=== PATIENT | female | born 1985 | race Caucasian/White ===

== ENCOUNTER 2024-10-29 13:59 | Emergency (ER) | payer OTHER, SELFPAY ==
--- OUTSIDE RECORDS SUMMARY | 2024-10-29 14:02 | XMS_ITS | Encounter Summary ---
Author Organization [facility] Address [address] [facility] [address] Care Team Providers Care Senior It Specialist Name Role Phone Tenisha Michelle APRN, DEPUTY [place] Primary Ca re Provider Encounter Details Date Type Department Care Team (Late st Contact Info) Description 06/04/2024 Notes/Orders [facility] [address] [place] [address] Jose Elias Garcia MD [address] [place] [id number] Social History Tobacco Use Types Packs/Day Years Used Date Smoking Tobacco: Never Passive Smoke Exposure: Never Alcohol Use Standard Drinks/Week Comments No 0 (1 standard drink = 0.6 oz pur e alcohol) PHQ-2 Answer Date Recorded PHQ-2 Score 0 05/14/2024 Depression Answer Date Recor ded Last EPDS Total Score 0 03/25/2024 Last EPDS Self Harm Result 0-->never 03/25 Sex and Gender Information Value Date Recorded Sex Assigned at Not on file Gender Identity Not on file Sexual Orientation Not on file documented as of this encounter Plan of Treatment Not on file documented as of this encounter Visit Diagnoses Not on filedocumented in this encounter Care Teams Senior It Specialist Relationship Specialty Start Date End Date Tenisha Michelle APRN, DEPUTY [place] [address] [id number] PCP - General Nurse Practitioner 07/30/16 documented as of this encounter
--- OUTSIDE RECORDS SUMMARY | 2024-10-29 14:02 | XMS_ITS | Encounter Summary ---
Author Organization [facility] Address [address] [place] [address] Care Team Providers Care Decatizer Name Role Phone Tenisha Michelle APRN, LIFEGUARD Primary Ca re Provider Encounter Details Date Type Department Care Team (Late st Contact Info) Description 04/10/2021 Lab Requisition [facility] [address] [facility] [place], [place] [address] Clinician, Not Found, [place] [address] Encounter for screening for respiratory tuberculosis Social History Tobacco Use Types Packs/Day Years Used Date Smoking Tobacco: Never Alcohol Use Standard Drinks/Week Comments No 0 (1 standard drink = 0.6 oz pur e alcohol) Depression Answer Date Recor ded Last EPDS Total Score 0 07/16/2020 Last EPDS Self Harm Result 0-->never 07/16 Sex and Gender Information Value Date Recorded Sex Assigned at Not on file Gender Identity Not on file Sexual Orientation Not on file documented as of this encounter Plan of Treatment Not on file documented as of this encounter Visit Diagnoses Diagnosis Encounter for screening for respiratory tuberculosis Screening examination for pulmonary tuberculosis documented in this encounter Care Teams Decatizer Relationship Specialty Start Date End Date Tenisha Michelle, TIFFANY, LIFEGUARD [address] [place] [address] PCP - General Nurse Practitioner 07/30/16 documented as of this encounter
--- OUTSIDE RECORDS SUMMARY | 2024-10-29 14:02 | XMS_ITS | Clinical Summary ---
Author Organization [facility] Address [place], [place] [address] Care Team Providers Care Customs Appraiser Name Role Phone Pcp, No Primary Care Provider Unavailabl e Allergies Active Allergy Reactions Criticality Noted Date Comments Clindamycin Other - Describe In Comment Field 07/30/2016 Latex Other - Describe In Comment Field 04/23/2016 PN: rash Penicillins Rash Medium 12/29/2015 Sulfa (Sulfonamide Antibiotics) Rash Medium 12/29/2015 Medications diphenhydrAMINE (BENADRYL) 50 mg capsule Take 1 capsule by mouth every 6 hours if needed. 0 10/22/2019 Active Immunizations Name Administration Dates Next Due Influenza, IIV4 07/22/2019 Tdap 05/18/2016 Family History Medical History Relation Name Comments No Known Problems Brother Sleep apnea Father Sleep apnea Paternal Uncle Relation Name Status Comments Brother Alive Father Alive Maternal Grandfather Maternal Grandmother Mother Alive Paternal Grandfather Paternal Grandmother Paternal Uncle Alive Social History Tobacco Use Types Packs/Day Years Used Date Smoking Tobacco: Former Cigarettes Smokeless Tobacco: Never Tobacco Cessation:Counseling Given: Yes Alcohol Use Standard Drinks/Week Comments Yes 0 (1 standard drink = 0.6 oz pur e alcohol) PHQ-2 Answer Date Recorded PHQ-2 Score 0 10/22/2019 Social Connections Answer Date Recorded Frequency of Communication with Friends and Fami ly Not on file 09/30/2021 Financial Resource Strain Answer Date R ecorded Difficulty of Paying Living Expenses Not on file 09/30/2021 Difficulty of Paying Living Expenses Not on file 09/30/2021 Comments No Sex and Gender Information Value Date Recorded Sex Assigned at Not on file Legal Sex Female 7:24 PM CDT Gender Identity Not on file Sexual Orientation Not on file Obstetrics History Last Filed Vital Signs Vital Sign Reading Time Taken Comments Blood Pressure 124/76 10/22/2019 10:03 AM SCRAP KETTLE TENDER Pulse 94 10/22/2019 10:03 AM SCRAP KETTLE TENDER Temperature - - Respiratory Rate - - Oxygen Saturation - - Inhaled Oxygen Concentration - - Weight 105.7 kg (233 lb) 10/22/2019 10:03 AM SCRAP KETTLE TENDER Height 163.8 cm (5' 4.47) 10/22/2019 10:[address] Body Mass Index 39.41 10/22/2019 10:03 AM SCRAP KETTLE TENDER Plan of Treatment Health Maintenance Due Date Last Done Comments HIV for age 15-65 1999 Hepatitis C screening for ag e 18-79 2002 Pap test for age 21-65 2005 BMI (ht and wt on same day) for age 18+ 10/22/2020 10/22/2019 Depression screening for age 12+ 10/22/2020 10/22/19 20 COVID-19 vaccine series (2023- season) 2024 Influenza for age 9-49 05/31/2024 07/22/2019 Tetanus booster 05/18/2026 05/18/2016 Tdap Completed 05/18/2016 Pneumococcal series for age 6-49 Aged Out No longer eligible based on patient's age to complete this topic Insurance [facility] Care Teams Customs Appraiser Relationship Specialty Start Date End Date Pcp, No . PCP - General 10/19/19
--- OUTSIDE RECORDS SUMMARY | 2024-10-29 14:02 | XMS_ITS | Clinical Summary ---
Author Organization [facility] Address [address] [place] [address] Care Team Providers Care Telegraphic Instrument Supervisor Name Role Phone Tenisha Michelle APRN, CAFETERIA HELPER Primary Ca re Provider Source Comments You are receiving this document as you are listed as the primary care provider,follow-up provider, or the patient has been referred to you for consultation.This is in compliance with the Medicare and[facility] Hospital[facility] EHR Incentive Program,which states Providers who transition their patient to another setting of careor provider of care or refers their patient to another provider of care shouldprovide summary care record for each transition of care or referral. Spectropath Allergies Active Allergy Reactions Criticality Noted Date Comments Clindamycin 07/30/2016 Latex 04/23/2016 PN: rash Penicillins Rash Medium 12/29/2015 Sulfa Antibiotics Rash Medium 12/29/2015 Medications No known medications Active Problems Problem Noted Date Diagnosed Date Sleep apnea 05/14/2024 Overview (05/14/2024): No CPAP Left foot pain 04/27/2024 Resolved Problems Problem Noted Date Diagnosed Date Resolved Date (spontaneous vaginal delivery) 08/01/2016 10/11/2016 Streptococcus B carrier stat e complicating 07/31/2016 10/11/2016 Prolonged second stage (of labor) 07/31/2016 10/11/2016 Pre-eclampsia in third trimester 07/23/2016 10/11/2016 Gestational diabetes mellitus, antepartum 06/05/2016 10/11/2016 Obesity in 01/27/2016 017 Cervical high risk HPV (jase n papillomavirus) test positive 01/27/2016 10/11/2016 Overview (05/04/2016): + HPV 16, normal pap. Plan repeat pp. Encounter for supervision of normal first 01/27/2016 10/11/2016 Overview (05/04/2016): Normal 20 week ultrasound. Immunizations Name Administration Dates Next Due Influenza IIV4 (Quadrivalent) 0.5mL (68662) 07/01 TDAP (BOOSTRIX) 05/18/2016 Family History Medical History Relation Name Comments Stroke Father Dandre Diabetes, Type II Paternal Grandfather Anesthesia Reaction Negative Family History DVT/PE Negative Family History Thromboembolic Disease Negative Family History Relation Name Status Comments Father Dandre Alive Mother Alive Brother Alive Maternal Grandfather Maternal Grandmother Alive Paternal Grandfather Paternal Grandmother Social History Tobacco Use Types Packs/Day Years [...] on file Sexual Orientation Not on file Last Filed Vital Signs Vital Sign Reading Time Taken Comments Blood Pressure 103/75 06/04/2024 2:34 PM CDT Pulse 76 06/04/2024 2:36 PM CDT Temperature 36.5 C (97.7 F) 06/04/2024 2:11 PM CDT Respiratory Rate 18 06/04/2024 2:36 PM CDT Oxygen Saturation 96% 06/04/2024 2:36 PM CDT Inhaled Oxygen Concentration - - Weight 99.2 kg (218 lb 12.8 oz) 024 12:50 PM CDT Height 167.6 cm (5' 6) 05/14/2024 12:5 0 PM CDT Body Mass Index 35.32 05/14/2024 12:50 PM CDT Plan of Treatment Health Maintenance Due Date Last Done Comments Hep C Screening (Preventive Services) 1984 Mammogram 1984 Adult Preventive Visit 2002 HepB (1) 2003 Cervical Cancer Screening 11/15/20172016, 11/15/2016 (Completed), 10/11/2016, Additional history exists COVID-19 Vaccine ( season) 2024 Influenza (#1) 2024 07/22/2019 DTaP/Tdap/Td (2 - Tdap) 05/18/2026 05/18/2016 Diabetes Screening- (based on age and BMI) 05/14/2027 05/14/2024, 12/29/2015 Zoster/Shingles (1 of 2) 2034 HIV Screening (Preventive Services) Completed 12/29/2015 HPV Vaccine Aged Out No longer eligi ble based on patient's age to complete this topic HepA Aged Out No longer eligi ble based on patient's age to complete this topic Hib Aged Out No longer eligi ble based on patient's age to complete this topic IPV (Polio) Aged Out No longer eligi ble based on patient's age to complete this topic MCV4 Aged Out No longer eligi ble based on patient's age to complete this topic Pneumococcal Aged Out No longer eligi ble based on patient's age to complete this topic Procedures Procedure Name Priority Date/Time Associated Diagnosis Comments HGB A1C Routine 05/14/2024 1:22 PM CDT History of gestational diabetes ANATOMICAL PATH LIQUID BASED Routine 10/11/2016 3:34 PM NATIONAL GUARD MEMBER HIV-1 P24 AND HIV-1/HIV-2 ANTIBODIES Routine 12/29/2015 2:12 PM CDT Screening examination for venereal disease from Last 3 Months or Most Recently Relevant to Health Maintenance Results * Hgb A1C (Expected: Now) - Collect in Lab (05/14/2024 1:22 PM CDT) Hemoglobin A1C 5.2 <=5.6 % 05/15/2024 8:41 AM CDT [facility] Estimated Average Glucose (Calc) 103 < 117 mg/dL 05/15/2024 8:41 AM CDT [facility] Comment:Estimated average gl ucose (eAG) converts A1c into glucose units (mg/dL) and estimates average glucose over the past approximately 3 months. The eAG reference interval (<117 mg/dL) corresponds to an A1c of <5.7%. Blood Venipuncture / Unknown 05/14/2024 1:22 PM CDT 05/14/2024 1:22 PM CDT Briseida Novoa APRN, CNP LAB_1 Performing Organization Address [facility] Co de Phone Number [facility] [address] * Pap Smear (10/11/2016 3:34 PM NATIONAL GUARD MEMBER) 10/11/2016 3:34 PM NATIONAL GUARD MEMBER Narrative SOFT - 10/19/2016 1:24 PM NATIONAL GUARD MEMBER FINAL GYNECOLOGICAL CYTOLOGY REPORT Pathology #: [id number] Date Obtained: 10/11/2016 Date Received: 10/12/2016 INTERPRETATION/RESULTS: Low grade squamous intraepithelial lesion, mild dysplasia (LSIL), encompassing mild epithelial dysplasia and koilocytic changes consistent with Condyloma acuminatum. SPECIMEN ADEQUACY: Satisfactory for Evaluation. Endocervical cells/transformation zone component present. Verified on 10/19/2016 by IRVING NEVAREZ MD (electronic signature) CLINICAL NOTES: Abnormal bleeding: No, LMP: 10/04/16, Menstrual status: Post , Current form of therapy: None apply LIQUID BASED PAP SMEAR SPECIMEN TYPE: DIAGNOSTIC CERVICAL PAP TEST PLEASE NOTE: The pap smear is a screening test designed to aid in the detection of cervical cancer and its precursor lesions. It is not a diagnostic procedure and should not be used as the sole means of detecting cervical cancer. Both false-positive and false-negative reports may occur. Performed at [address] [address] Emelia Goldstein MD LAB_1 Performing Organization Address [facility]/ZIP Co de Phone Number [facility] [address] [place] [phone] * HIV-1 P24 AND HIV-1/HIV-2 ANTIBODIES (12/29/2015 2:12 PM CDT) HIV-1 p24 Ag and HIV-1/HIV-2 Ab Nonreactive Non-React lexi HP CONVERSION 12/29/2015 2:12 PM CDT 12/29/2015 7:23 PM CDT Narrative HP CONVERSION - 12/29/2015 8:19 PM CDT Performed at [address] [address] CLIA number [id number] Tenisha Denise APRN, QUYNH LAB _1 HP CONVERSION from Last 3 Months or Most Recently Relevant to Health Maintenance Advance Directives * Full Code (Latest Code Status on File) Date Activated Date Inactivated Comments 06/04/2024 10:57 AM 06/04/2024 5:12 PM * Full Code Date Activated Date Inactivated Comments 07/30/2016 12:00 PM 08/02/2016 1:42 PM * Full Code Date Activated Date Inactivated Comments 07/23/2016 9:47 PM 07/24/2016 11:22 PM Care Teams Telegraphic Instrument Supervisor Relationship Specialty Start Date End Date Tenisha Michelle APRN, CAFETERIA HELPER [address] [place] [id number] PCP - General Nurse Practitioner 07/30/16
--- OUTSIDE RECORDS SUMMARY | 2024-10-29 14:02 | XMS_ITS | Encounter Summary ---
Author Organization [facility] Address [address] [place] [address] Care Team Providers Care Manager Port Name Role Phone Tenisha Michelle APRN, VIRTUALIZATION ENGINEER Primary Ca re Provider Encounter Details Date Type Department Care Team (Late st Contact Info) Description 07/23/2024 Notes/Orders [facility] [address] [place] [address] Jose Elias Garcia MD [address] [place] [address] Social History Tobacco Use Types Packs/Day Years [...] on filedocumented in this encounter Care Teams Manager Port Relationship Specialty Start Date End Date Tenisha Michelle APRN, VIRTUALIZATION ENGINEER [address] [phone] PCP - General Nurse Practitioner 07/30/16 documented as of this encounter
--- OUTSIDE RECORDS SUMMARY | 2024-10-29 14:02 | XMS_ITS | Encounter Summary ---
Author Organization [facility] Address [address] [facility] [address] Care Team Providers Care Janitor Head Name Role Phone Tenisha Michelle APRN, AIRPORT REFUELING HANDLER Primary Ca re Provider Encounter Details Date Type Department Care Team (Late st Contact Info) Description 07/23/2024 Notes/Orders [facility] [address] [place] [address] Jose Elias Garcia MD [address] [place] [id number] Social History Tobacco Use Types Packs/Day Years [...] on filedocumented in this encounter Care Teams Janitor Head Relationship Specialty Start Date End Date Tenisha Michelle APRN, AIRPORT REFUELING HANDLER [address] [id number] PCP - General Nurse Practitioner 07/30/16 documented as of this encounter
[2024-10-29 14:09] VITALS: BP 142/80; PULSE 109; RESP 22; TEMP 38.2; O2SAT 97
[2024-10-29 14:44] LABS: Strep A DNA Probe* NOT DETECTED (Not Detectd)
[2024-10-29 14:57] LABS: PCR FLU A POSITIVE PCR FLU A (Negative); PCR FLU B Negative PCR FLU B (Negative); PCR RSV Negative PCR RSV (Negative); SARS PCR* Negative SARS-CoV-2 (Negative)
--- NOTE | 2024-10-29 16:21 | ED.GENADULT ---
HPI - General Adult General Chief complaint: Cough Stated complaint: Poss pneumonia Time Seen by Provider: 10/29/24 16:12 History of Present Illness HPI narrative: This 39-year-old female comes in with upper respiratory symptoms including cough, body aches, nasal congestion, and sore throat. She states that her daughter was also ill and was diagnosed with a pneumonia. Related Data Previous Rx's ?Medication ?Instructions ?Recorded acetaminophen 300 mg-codeine 30 mg 1 tab PO Q6H PRN pain #15 tabs 10/29/24 tablet oseltamivir 75 mg capsule (Tamiflu) 75 mg PO BID 5 days #10 caps 10/29/24 Allergies Allergy/AdvReac Type Severity Reaction Status Date / Time latex Allergy Unknown Verified 10/29/24 14:04 Penicillins Allergy Unknown Verified 10/29/24 14:04 Sulfa (Sulfonamide Allergy Unknown Verified 10/29/24 14:04 Antibiotics) Review of Systems Status of ROS: Reports: 10 or more systems reviewed and unremarkable except as noted in History and below Narrative: Constitutional: No weight gain or loss. Eyes: No discharge. No vision changes. HENT: No ear pain. Nasal congestion and sore throat. Cardiovascular: No chest pain, no palpitations. Respiratory: No shortness of breath, no wheezes. She reports a cough. Gastrointestinal: No abdominal pain, no vomiting, no diarrhea. Genitourinary: No dysuria, no hematuria. Musculoskeletal: Normal range of motion. Skin: No rashes, no pruritis. Neurological: No dizziness, weakness, sensory change, speech change. Endo/Heme/Allergies: No bruising or bleeding. No polydipsia. Pysch: no suicidality, no anxiety, no insomnia. All other systems reviewed and are negative. Exam Narrative: Exam Narrative: Constitutional: Well-developed, well-nourished, no acute distress. HEENT: Normocephalic, atraumatic. Neck: Normal range of motion. Nontender. Supple. Heart: Regular. No murmurs. Normal rate. Intact distal pulses. Lungs: Clear to auscultation. No chest discomfort. No wheezes, rhonchi, or rales. Abdomen: Normal bowel sounds. Nontender. No rebound tenderness. Genitalia: Deferred. Back: No midline tenderness. Normal range of motion. Extremities: Normal range of motion. No injury. Skin: Intact. No rash. Warm. No erythema or pallor. Neurologic: No altered sensation. No weakness. Alert and oriented. Psychiatric: No suicidality. No anxiety or depression. No insomnia. Nursing notes and vitals signs are reviewed. Const: Vital Signs, click to edit/add: Vital Signs - 24 hr 10/29/24 14:09 Temperature 100.8 F H Pulse Rate [Pulse Oximeter] 109 H Respiratory Rate 22 Blood Pressure [Ri ght Upper Arm] 142/80 H Pulse Oximetry 97 Oxygen Delivery Me thod Room Air Course Vital Signs Vital signs: Initial Vital Signs Temperature 100.8 F H 10/29/24 14:09 Temperature Source Temporal Artery Scan 10/29/24 14:09 Pulse Rate 109 H 10/29/24 14:09 Pulse Rhythm Regular 10/29/24 14:09 Pulse Strength 3+ Normal 10/29/24 14:09 Respiratory Rate 22 10/29/24 14:09 Blood Pressure 142/80 H 10/29/24 14:09 Blood Pressure Mean 100 10/29/24 14:09 Blood Pressure Position Sitting 10/29/24 14:09 Pulse Oximetry 97 10/29/24 14:09 Oxygen Delivery Method Room Air 10/29/24 14:09 Vital Signs Temperature 100.8 F H 10/29/24 14:09 Pulse Rate 109 H 10/29/24 14:09 Respiratory Rate 22 10/29/24 14:09 Blood Pressure 142/80 H 10/29/24 14:09 Pulse Oximetry 97 10/29/24 14:09 Oxygen Delivery Method Room Air 10/29/24 14:09 Temperature 100.8 F H 10/29/24 14:09 Pulse Rate 109 H 10/29/24 14:09 Respiratory Rate 22 10/29/24 14:09 Blood Pressure 142/80 H 10/29/24 14:09 Pulse Oximetry 97 10/29/24 14:09 Oxygen Delivery Method Room Air 10/29/24 14:09 Medical Decision Making [facility] Narrative Medical decision making narrative: This patient comes in with upper respiratory symptoms as described above. She does have a fever and nasal pharyngeal swab returns positive for influenza A. Her lungs sound clear bilaterally and she is not in any kind of respiratory distress. The patient did receive an oral dose of dexamethasone 10 mg. I did provide a prescription for Tamiflu and Toradol 3. Lab Data Labs: Lab Results 10/29/24 Range/Units 14:10 SARS-CoV-2 (PCR) Negative SARS-CoV-2 (Negative) Influenza Type A (PCR) POSITIVE PCR FLU A A (Negative) Influenza Type B (PCR) Negative PCR FLU B (Negative) RSV (PCR) Negative PCR RSV (Negative) Group A Strep DNA NOT DETECTED (Not Detectd) Discharge Plan Discharge Clinical Impression: Influenza A Patient Disposition: Home, Self-Care Condition: Unchanged Additional Instructions: Take medications as prescribed. Use [id number] medicines also as needed and directed. Follow up with MD return if worsening. Prescriptions: New acetaminophen-codeine 300-30 mg tablet 1 tab PO Q6H PRN (Reason: pain) Qty: 15 0RF oseltamivir [Tamiflu] 75 mg capsule 75 mg PO BID 5 Days Qty: 10 0RF Follow Up/Referrals: Christos Arango MD [Primary Care Provider] - Stand Alone Forms: [employer] Info Instructions
[2024-10-29 16:28] VITALS: PULSE 100; RESP 22; O2SAT 98
[2024-10-29] MEDS: ACETAMINOPHEN 500 MG TABLET 1000 MG PO (16:37)
[2024-10-29] MEDS: dexAMETHasone 10 MG/ML inj PO (16:37)
[2024-10-29] MEDS: IBUPROFEN 200 MG TABLET 600 MG PO (16:37)
--- OUTSIDE RECORDS SUMMARY | 2024-10-29 16:56 | XMS_ITS | Encounter Summary ---
Author Organization [facility] Address [address] [place] [address] Care Team Providers Care Security Lead Name Role Phone Tenisha Michelle APRN, SEWER HAND Primary Ca re Provider Encounter Details Date Type Department Care Team (Late st Contact Info) Description 07/23/2024 Notes/Orders [facility] [address] [place] [address] Jose Elias Garcia MD [address] [place] [id number] Social History Tobacco Use Types Packs/Day Years [...] on filedocumented in this encounter Care Teams Security Lead Relationship Specialty Start Date End Date Tenisha Michelle APRN, SEWER HAND [address] [phone] PCP - General Nurse Practitioner 07/30/16 documented as of this encounter
--- OUTSIDE RECORDS SUMMARY | 2024-10-29 16:56 | XMS_ITS | Encounter Summary ---
Author Organization [facility] Address [address] [facility] [place] [address] Care Team Providers Care Open Hearth Stockyard Supervisor Name Role Phone Tenisha Michelle APRN, DIE GRINDER Primary Ca re Provider Encounter Details Date Type Department Care Team (Late st Contact Info) Description 07/23/2024 Notes/Orders [facility] [address] [place] [address] Jose Elias Garcia MD [address] [place] [address] Social History Tobacco Use Types Packs/Day Years [...] on filedocumented in this encounter Care Teams Open Hearth Stockyard Supervisor Relationship Specialty Start Date End Date Tenisha Michelle APRN, DIE GRINDER [address] [id number] PCP - General Nurse Practitioner 07/30/16 documented as of this encounter
--- OUTSIDE RECORDS SUMMARY | 2024-10-29 16:56 | XMS_ITS | Encounter Summary ---
Author Organization [facility] Address [address] [place] [address] Care Team Providers Care Systems Planner Name Role Phone Tenisha Michelle APRN, PAPER GRADER Primary Ca re Provider Encounter Details Date Type Department Care Team (Late st Contact Info) Description 04/10/2021 Lab Requisition [facility] [address] [facility] [place], [place] [id number] Clinician, Not Found, [place] [address] Encounter for screening for respiratory tuberculosis Social [...] tuberculosis documented in this encounter Care Teams Systems Planner Relationship Specialty Start Date End Date Tenisha Michelle, TIFFANY, PAPER GRADER [address] [place] [address] PCP - General Nurse Practitioner 07/30/16 documented as of this encounter
--- OUTSIDE RECORDS SUMMARY | 2024-10-29 16:56 | XMS_ITS | Clinical Summary ---
Author Organization [facility] Address [address] [place] [address] Care Team Providers Care Sales Manager Prearranged Funerals Name Role Phone Tenisha Michelle APRN, BARREL MARKER Primary Ca re Provider Source Comments You are receiving this document as you are listed as the primary care provider,follow-up provider, or the patient has been referred to you for consultation.This is in compliance with the Medicare and[facility] EHR Incentive Program,which states Providers who transition their patient to another setting of careor provider of care or refers their patient to another provider of care shouldprovide summary care record for each transition of care or referral. Singular Allergies Active Allergy Reactions Criticality Noted Date [...] 10/11/2016 Overview (05/04/2016): Normal 20 week ultrasound. Encounters Date Type Department Care Team Description 10/29/2024 11:30 AM POT FLUXER Telemedicine [facility] [place] [address] [place] [address] Liset Choe, FIRST AID INSTRUCTOR, BARREL MARKER Upper respiratory tract infection, unspecified type (Primary Dx) from Last 3 Months Immunizations Name Administration Dates Next Due Influenza IIV4 (Quadrivalent) 0.5mL (15357) 07/01 TDAP (BOOSTRIX) 05/18/2016 Family History Medical [...] PATH LIQUID BASED Routine 10/11/2016 3:34 PM POT FLUXER HIV-1 P24 AND HIV-1/HIV-2 ANTIBODIES Routine 12/29/2015 2:12 PM CDT Screening examination for venereal disease from Last 3 Months or Most Recently Relevant to Health Maintenance Results * Hgb A1C (Expected: Now) - Collect in Lab (05/14/2024 1:22 PM CDT) Hemoglobin A1C 5.2 <=5.6 % 05/15/2024 8:41 AM CDT [facility] Estimated Average Glucose (Calc) 103 < 117 mg/dL 05/15/2024 8:41 AM CDT [facility] Comment:Estimated average gl ucose (eAG) converts A1c into glucose units (mg/dL) and estimates average glucose over the past approximately 3 months. The eAG reference interval (<117 mg/dL) corresponds to an A1c of <5.7%. Blood Venipuncture / Unknown 05/14/2024 1:22 PM CDT 05/14/2024 1:22 PM CDT Briseida Novoa APRN, CNP LAB_1 Performing Organization Address City/State/[facility] Co de Phone Number [facility] [address] * Pap Smear (10/11/2016 3:34 PM POT FLUXER) 10/11/2016 3:34 PM POT FLUXER Narrative PN SOFT - 10/19/2016 1:24 PM POT FLUXER FINAL GYNECOLOGICAL CYTOLOGY REPORT Pathology #: [id number] Date Obtained: 10/11/2016 Date Received: 10/12/2016 INTERPRETATION/RESULTS: [...] and false-negative reports may occur. Performed at [facility], [address] [place] [id number] Emelia Goldstein MD LAB_1 Performing Organization Address [facility] de Phone Number PN SOFT [address] [place] [phone] * HIV-1 P24 AND HIV-1/HIV-2 ANTIBODIES (12/29/2015 2:12 PM CDT) HIV-1 p24 Ag and HIV-1/HIV-2 Ab Nonreactive Non-React lexi HP CONVERSION 12/29/2015 2:12 PM CDT 12/29/2015 7:23 PM CDT Narrative HP CONVERSION - 12/29/2015 8:19 PM CDT Performed at [facility], [address] [place] [id number] CLIA number [id number] Tenisha Denise APRN, BARREL MARKER LAB _1 Performing Organization Address [facility] de Phone Number HP CONVERSION from Last 3 Months or [...] 9:47 PM 07/24/2016 11:22 PM Care Teams Sales Manager Prearranged Funerals Relationship Specialty Start Date End Date Tenisha Michelle, FIRST AID INSTRUCTOR, BARREL MARKER [address] [place] [address] PCP - General Nurse Practitioner 07/30/16
--- OUTSIDE RECORDS SUMMARY | 2024-10-29 16:56 | XMS_ITS | Encounter Summary ---
Author Organization [facility] Address [address] [facility] [place] [address] Care Team Providers Care Contract Admin Name Role Phone Tenisha Michelle APRN, APPOINTMENT COORDINATOR Primary Ca re Provider Encounter Details Date Type Department Care Team (Late st Contact Info) Description 06/04/2024 Notes/Orders [facility] [address] [place] [address] Jose Elias Garcia MD [address] [place] [id number] Social History Tobacco Use Types Packs/Day Years [...] on filedocumented in this encounter Care Teams Contract Admin Relationship Specialty Start Date End Date Tenisha Michelle APRN, APPOINTMENT COORDINATOR [address] [id number] PCP - General Nurse Practitioner 07/30/16 documented as of this encounter
== END 2024-10-29 18:08 | disposition home or self-care (01) ==
LOC: ED 16:55
PROVIDERS: Emergency Provider Emergency Medicine Emergency Medical Services; PCP Family Medicine
DX: J10.1 Influenza due to other identified influenza virus with other respiratory manifestations (principal)
CPT/HCPCS: 87631; 87651; 99283; 99284; A9270; J1100